=== PATIENT | female | born 1970 | race Caucasian/White ===

== ENCOUNTER 2018-02-23 06:10 | Inpatient (IN) | payer BC ==
[2018-02-01 11:41] VITALS: BMI 22.6
[2018-02-23] MEDS ORDERED: CEFAZOLIN 1 GM/D5W 1 GRAM/50 ML BAG IVPB ONE (06:22)
[2018-02-23] MEDS ORDERED: TRANEXAMIC ACID 1000 MG/10 ML VIAL IVPUSH ONE (06:45)
[2018-02-23] MEDS ORDERED: SUCCINYLCHOLINE CHLORIDE 200 MG/10 ML VIAL ONE (06:47)
[2018-02-23] MEDS ORDERED: PROPOFOL 20 ML ONE ×6 (06:47)
[2018-02-23] MEDS ORDERED: LIDOCAINE HCL/PF 2% SDV 5ML VIAL ONE (06:47)
[2018-02-23] MEDS ORDERED: MIDAZOLAM HCL 2 MG/2 ML SINGLE DOSE VIAL ONE ×2 (06:48)
[2018-02-23] MEDS ORDERED: EPINEPHrine/PF 1 MG/1 ML (1:1,000) AMPULE ONE (06:48)
[2018-02-23] MEDS ORDERED: GABAPENTIN 300 MG CAPSULE (FP) ONE (06:52)
[2018-02-23] MEDS ORDERED: CELECOXIB 200 MG CAPSULE ONE (06:52)
[2018-02-23] MEDS ORDERED: oxyCODONE HCL 10 MG SUSTAINED ACTING TABLET ONE (06:52)
[2018-02-23] MEDS ORDERED: DESFLURANE GAS 240 ML BOTTLE IH ONE (06:55)
[2018-02-23] MEDS ORDERED: DEXAMETHASONE SOD PHOSPHATE/PF 10 MG/ML SDV ONE (06:55)
[2018-02-23] MEDS ORDERED: ROPIVACAINE HCL 0.5% 30ML VIAL ONE (06:55)
[2018-02-23] MEDS: oxyCODONE HCL 10 MG SUSTAINED ACTING TABLET PO ONE ×2 (07:05→11:26)
[2018-02-23] MEDS: GABAPENTIN 300 MG CAPSULE (FP) PO ONE ×2 (07:05→11:26)
[2018-02-23] MEDS: CELECOXIB 200 MG CAPSULE PO ONE ×2 (07:05→11:25)
[2018-02-23] MEDS ORDERED: VANCOMYCIN 1,000 MG VIAL (RESTRICTED TO ID ONLY) ONE (07:12)
[2018-02-23] MEDS ORDERED: ceFAZolin SODIUM 1 GM VIAL ONE (07:58)
--- NOTE | 2018-02-23 07:58 | HP ---
Satellite [facility] - Chief Complaint Chief Complaint: right hip pain - Past Medical History Allergies/Adverse Reactions: Allergies Allergy/AdvReac Type Severity Reaction Status Date / Time Penicillins Allergy Severe SEIZURE AT Verified 02/01/18 11:29 16 MONTHS OLD ...LMP: 12/27/17 - Current Medications Current Medications: Home Medications Medication Instructions Recorded Amlodipine Besylate 10 mg PO HS 02/01/18 Cyanocobalamin (Vitamin B-12) 2,500 mcg PO DAILY 02/01/18 [Vitamin B12] Mirabegron [Myrbetriq] 25 mg PO HS 02/01/18 Multivitamin [Multiple Vitamins] 1 each PO DAILY 02/01/18 Olopatadine HCl [Patanol] 5 ml OU DAILY 02/01/18 Valacyclovir HCl [Valtrex] 500 mg PO HS 02/01/18 Vitamin B Complex Vit C No.4 150 mg PO DAILY 02/01/18 [Super B Complex] Azelastine HCl 137 mcg NS DAILY 02/23/18 Fluticasone Prop 0.05% Nasal 1 - 2 spray NS DAILY 02/23/18 [Flonase -] Satellite Physical Exam - Physical Examination Vital Signs: Vital Signs Period Temp Pulse Resp BP Sys/Bryan Pulse Ox Last 24 Hr 98.5 F 76 16 114/68 General Appearance: Well Nourished, Well Developed, Alert & Oriented x3 ENT: Clear Lung: Normal air movement Heart: Regular rate & rhythm Extremities: Other (right hip- + ttp, decr rom, nvi xrays show grade 4 hip djd) Neurological: Intact, Alert, Oriented Satellite Impression/Plan - Impression/Plan Impression: right hip djd Operative Procedure: right ryan thr Date to be Performed: 02/23/18
[2018-02-23] MEDS ORDERED: BUPIVACAINE HCL/PF 0.5% (5MG/ML) 10 ML VIAL ONE (08:13)
[2018-02-23] MEDS ORDERED: ePHEDrine SULFATE 50 MG/1 ML AMPULE ONE (08:58)
[2018-02-23] MEDS ORDERED: MAG HYDROX/AL HYDROX/SIMETH 30 ML UNIT-DOSE CUP PO PRN (09:37)
[2018-02-23] MEDS ORDERED: ONDANSETRON 4 MG/2 ML VIAL IVPUSH PRN ×2 (09:37→09:45)
[2018-02-23] MEDS ORDERED: MAGNESIUM HYDROX 2400MG/30ML ORAL SUSPENSION 30 ML CUP PO PRN (09:37)
--- NOTE | 2018-02-23 09:39 | OP ---
Operative Note - Note: Operative Date: 02/23/18 (dana) Pre-Operative Diagnosis: right hip djd Operation: right ryan thr Post-Operative Diagnosis: Same as Pre-op Surgeon: Evans Cassidy Social Media Developer: Ruben Eisenberg) Anesthesiologist/[employer]: Emre Bennett Anesthesia: Spinal, Local Specimens Removed: femoral head Estimated Blood Loss (mls): 100 Operative Report Dictated: Yes
[2018-02-23] MEDS ORDERED: LACTATED RINGERS SOLUTION 1,000 ML IV SCH ×2 (09:45)
[2018-02-23] MEDS ORDERED: PROMETHAZINE HCL 25 MG/1 ML VIAL IVPB PRN (09:45)
[2018-02-23] MEDS ORDERED: oxyCODONE HCL 5 MG TABLET PO PRN (09:45)
[2018-02-23] MEDS ORDERED: OLOPATADINE HCL OU SCH (10:00)
[2018-02-23] MEDS ORDERED: TRANEXAMIC ACID 1000 MG/10 ML VIAL IVPB ONE (10:16)
[2018-02-23] MEDS ORDERED: TRANEXAMIC ACID 1000 MG/10 ML VIAL ONE (10:42)
[2018-02-23] MEDS: ACETAMINOPHEN 325 MG TABLET (FP) PO SCH ×2 (10:55→17:38)
[2018-02-23] MEDS: FLUTICASONE PROP 0.05% 16 GM NASAL SPRAY NS SCH (11:26)
[2018-02-23] MEDS: PANTOPRAZOLE 40 MG TABLET (FP) PO SCH (11:27)
[2018-02-23] MEDS: SENNOSIDES/DOCUSATE COMBO (SENNA PLUS) TABLET (UD) PO SCH ×2 (11:27→22:13)
[2018-02-23] MEDS: MULTIVITAMINS (DAILY MVI) TABLET (FP) PO SCH (11:27)
[2018-02-23] MEDS: GABAPENTIN 300 MG CAPSULE (FP) PO SCH ×2 (11:27→22:13)
[2018-02-23] MEDS: PATIENT'S OWN MEDICATION (NON-FORMULARY) (Azelastine Hcl [Azelastine Hcl] 137 MCG) NS SCH (11:28)
[2018-02-23] MEDS: oxyCODONE HCL 5 MG TABLET PO PRN ×2 (13:16→22:29)
--- NOTE | 2018-02-23 13:19 | SPEC ---
DATE OF OPERATION: 02/23/2018 PREOPERATIVE DIAGNOSIS: Degenerative joint disease right hip. POSTOPERATIVE DIAGNOSIS: Degenerative joint disease right hip. PROCEDURE PERFORMED: Right total hip replacement with robotic-assisted navigation (MAKOplasty). SURGICAL ATTENDING: Evans Cassidy MD HEARING AID REPAIR TECHNICIAN: RICK Boyd and Petra Rehman MD ANESTHESIA: Regional and spinal. CLOSURE: A Trident II Press-Fit acetabular component, 46 mm; a standard MDM head; and a number 4 Accolade II Press-Fit femoral stem. Number 1 Vicryl for fascia, 0 and 2-0 subcutaneous, 3-0 subcuticular with skin glue for skin, 4-0 undyed Vicryl for pin sites. ESTIMATED BLOOD LOSS: Less than 100 mL. COMPLICATIONS: None. CONDITION: To the recovery room in stable condition. DESCRIPTION OF PROCEDURE: The patient was taken to the operating room on February 23, 2018. General and regional anesthesia was administered by the anesthesiologist. IV Kefzol and TXA were administered prophylactically prior to the case. The patient was placed in the lateral decubitus position will all prominences well-padded. The right hip area was prepped and draped in the usual sterile fashion. Using 3 small stab incisions over the iliac crest, 3 threaded pins were drilled in power fashion through the 2 tables of the crest. These pins were fastened and the navigation array for the Rogelio navigation system. Next, a 12 to 15-cm curved longitudinal incision over the posterolateral aspect of the greater trochanter was incised. Hemostasis was achieved with Bovie cautery. Sharp dissection was carried down to level of the fascia. The fascia was opened the entire length of the incision, spreading the fibers of the gluteus ruth in the direction of origin. A Charnley retractor was placed in this layer. Care was taken not to impale the sciatic nerve. The short external rotators were detached off the insertion of the greater trochanter and peeled off the capsule. A posterior capsulotomy was then performed. A check point was malleted into the greater trochanter and a point on the inferior pole of the patella was obtained as well. These 2 points were used to assess the preoperative offset and limb lengths of the hip. The hip was then dislocated. The femoral neck was then osteotomized down to the appropriate level as directed by the navigation device. Anterior and posterior retractors were placed, exposing the acetabulum. A circumferential labral excision was performed. A check point was malleted into the acetabulum as well. Multiple sites inside the acetabulum and around the rim were utilized to register the acetabulum with the navigation device. An excellent registration of less than 0.5 mm was obtained. The hip was then reamed with the appropriate reamer down to the appropriate depth, with the appropriate orientation and version as assessed on our preoperative plan for this patient. The reamer was removed and the acetabulum was inspected to have good bleeding surfaces throughout. The real acetabular cup was then malleted down into place, with the holes in the appropriate position, until an excellent fixation was obtained. No screws were necessary. The navigation device ensured appropriate orientation and version, with the depth as predetermined. The appropriate liner was then clipped into place. Attention was directed to the femur. The proximal femur was prepared by use a box chisel, a canal finder and serial broaches until the broach achieved excellent rigidity in the proximal femur with the appropriate version being applied. A calcar planer was used to smooth off the calcar flush with the trial components. A trial reduction with the appropriate head was done, and the hip was reduced. The hip was taken through a range of motion from full extension with external rotation to marked flexion, and was stable at 90 degrees of flexion. It was stable to marked abduction and internal rotation, with a positive hang test and negative telescoping. Limb lengths were ascertained visually as well as with the navigation device to be within the targeted range for this patient. The trial component was removed. The real component was then malleted into place. The head was cold welded to the trunnion, and the hip was reduced. Range of motion, stability and limb lengths were as described in the trial component. Then the hip was pulse antibiotic irrigated. Vancomycin powder was placed in the hip joint. The capsule was closed. The fascia was then closed as well using number 1 Vicryl interrupted suture, 0 and 2-0 subcutaneous, and 3-0 subcuticular with skin glue for the skin. 4-0 undyed Vicryl was used to close the pin sites after the pins were removed. All check points were also removed. Sterile Aquacel dressing was applied. The patient was awakened from anesthesia and transferred into the supine position. Bilateral SCDs and an abduction pillow were placed. X-rays revealed excellent position of the components. The patient was transferred to the recovery room in stable condition, with no complications. Estimated blood loss was less than 100 mL. Petra Rehman MD dictating for MD PETRA Alcantara M.D. [id number]
[2018-02-23] MEDS: CEFAZOLIN 1 GM/D5W 1 GRAM/50 ML BAG IVPB SCH (15:45)
[2018-02-23] MEDS ORDERED: PT OWN MED DRAWER 7, Y5N ONE ×2 (18:16→20:20)
[2018-02-23] MEDS: amLODIPine BESYLATE 10 MG TABLET (FP) PO SCH (22:14)
[2018-02-23] MEDS: oxyCODONE HCL 10 MG SUSTAINED ACTING TABLET PO SCH (22:14)
[2018-02-23] MEDS: PATIENT'S OWN MEDICATION (NON-FORMULARY) (Mirabegron [Myrbetriq] 25 MG) PO SCH (22:14)
[2018-02-24] MEDS: ACETAMINOPHEN 325 MG TABLET (FP) PO SCH ×4 (00:27→18:07)
[2018-02-24] MEDS: CEFAZOLIN 1 GM/D5W 1 GRAM/50 ML BAG IVPB SCH (00:28)
[2018-02-24] MEDS: oxyCODONE HCL 5 MG TABLET PO PRN ×3 (03:53→20:04)
[2018-02-24 08:28] LABS: HEMOGLOBIN 9.7 GM/dl (10.7-15.3); MCH 24.1 pg (25.7-33.7); MCHC 32.4 g/dl (32.0-36.0); MEAN CELL VOLUME 74.6 fl (80-96); MEAN PLT VOLUME 10.3 fl (7.5-11.1); PLATELET COUNT 185 K/MM3 (134-434); RBC 4.03 M/mm3 (3.60-5.2); RDW 14.5 % (11.6-15.6); WHITE BLOOD COUNT 13.7 K/mm3 (4.0-10.8)
[2018-02-24] MEDS: ASPIRIN 325 MG TABLET PO SCH (08:50)
--- NOTE | 2018-02-24 09:29 | PN ---
Progress Note (short form) - Note Progress Note: 47F POD1 s/p R THR under spinal anesthetic with peripheral nerve block for post operative pain relief. Pt states that pain is well controlled and reports no anesthetic complications. AVSS. Motor and sensory function intact in bilateral lower extremities. Continue current regimen.
--- NOTE | 2018-02-24 09:52 | PN ---
Progress Note (short form) - Note Progress Note: Ortho Pt seen and examined s/p right ryan thr pod #1 Selected Entries 02/24/18 06:00 Temperature 98.1 F Pulse Rate 79 Respiratory 18 Rate Blood Pressure 135/78 Laboratory Tests 02/24/18 07:30 WBC 13.7 H Hgb 9.7 L Hct 30.0 L Plt Count 185 dressing c/d/i, calf soft, nt nvi a/p PT hip precautions dvt ppx pain control d/c home tomorrow if stable
[2018-02-24] MEDS: PATIENT'S OWN MEDICATION (NON-FORMULARY) (Azelastine Hcl [Azelastine Hcl] 137 MCG) NS SCH (10:00)
[2018-02-24] MEDS ORDERED: PT OWN MED DRAWER 7, Y5N ONE ×3 (10:04→21:42)
[2018-02-24] MEDS: FLUTICASONE PROP 0.05% 16 GM NASAL SPRAY NS SCH (10:08)
[2018-02-24] MEDS: SENNOSIDES/DOCUSATE COMBO (SENNA PLUS) TABLET (UD) PO SCH ×2 (10:09→22:31)
[2018-02-24] MEDS: MULTIVITAMINS (DAILY MVI) TABLET (FP) PO SCH (10:09)
[2018-02-24] MEDS: GABAPENTIN 300 MG CAPSULE (FP) PO SCH ×2 (10:09→22:31)
[2018-02-24] MEDS: oxyCODONE HCL 10 MG SUSTAINED ACTING TABLET PO SCH ×2 (10:09→22:31)
[2018-02-24] MEDS: PANTOPRAZOLE 40 MG TABLET (FP) PO SCH (10:10)
[2018-02-24] MEDS ORDERED: OLOPATADINE HCL OU PRN (10:39)
[2018-02-24] MEDS: amLODIPine BESYLATE 10 MG TABLET (FP) PO SCH (22:31)
[2018-02-24] MEDS: PATIENT'S OWN MEDICATION (NON-FORMULARY) (Mirabegron [Myrbetriq] 25 MG) PO SCH (22:37)
[2018-02-25] MEDS: ACETAMINOPHEN 325 MG TABLET (FP) PO SCH ×3 (01:59→11:20)
[2018-02-25 06:45] VITALS: BP 105/55; PULSE 79; TEMP 99.5
[2018-02-25] MEDS: ASPIRIN 325 MG TABLET PO SCH (08:00)
--- NOTE | 2018-02-25 08:11 | DS ---
Physical Examination Vital Signs: Vital Signs Temperature 99.5 F 02/25/18 06:00 Pulse Rate 79 02/25/18 06:00 Respiratory Rate 18 02/25/18 06:00 Blood Pressure 105/55 L 02/25/18 06:00 O2 Sat by Pulse Oximetry (%) 95 02/25/18 06:00 Discharge Summary Reason For Visit: OSTEOARTHRITIS Procedures: Principal: s/p right thr Hospital Course: admitted for elective right ryan thr, uneventful post-op, stable for d/c Condition: Good - Instructions Diet, Activity, Other Instructions: Post-op Instructions-Total Hip Replacement Call the office for a follow-up appointment in 1 week - [phone] Aspirin 325mg daily for 6 weeks. Pain medication was sent into your pharmacy. Apply Graduated Compression Stockings (TEDs) to both lower extremities- remove daily for hygiene ONLY Apply Sequential Compression Device (SCDs) to both Lower extremities remove for PT and hygiene ONLY Apply cold packs to affected area for 15 minutes every 2 hours. Physical Therapist will come to your home for the first 5 days. You will be set up with outpatient PT at your first post-operative visit. Patient may ambulate as tolerated-encourage self care (at least every 2-3 hours while awake) with walker or cane Maintain Aquacel (waterproof) dressing to operative wound (will be removed by surgeon at first office visit) Shower with Aquacel dressing in place-if Aquacel integrity compromised, remove and apply dry sterile dressing and notify Orthopedist. DO NOT SHOWER unless Orthopedists approves without Aquacel dressing CONTACT THE OFFICE FOR ANY CHANGE IN YOUR CONDITION (for example-fever greater than 102 degrees, excessive bleeding from operative site, purulent drainage, severe swelling or pain) GO TO THE EMERGENCY ROOM IF THERE IS A MEDICAL EMERGENCY Hip Precautions: * Keep a rolled towel under affected heel while in bed or chair (to keep knee in extension) * Dependent upon approach: * Posterior - do not cross legs; do not sit on low chairs or toilets. * If you have any questions, please do not hesitate to call the office - [phone]. Referrals: Jose Rehman MD [Staff Physician] - Disposition: VNS/HOME HEALTH CARE - Home Medications Comprehensive Discharge Medication List: Ambulatory Orders Amlodipine Besylate 10 mg PO HS 02/01/18 Cyanocobalamin (Vitamin B-12) [Vitamin B12] 2,500 mcg PO DAILY 02/01/18 Mirabegron [Myrbetriq] 25 mg PO HS 02/01/18 Multivitamin [Multiple Vitamins] 1 each PO DAILY 02/01/18 Olopatadine HCl [Patanol] 5 ml OU DAILY 02/01/18 Valacyclovir HCl [Valtrex] 500 mg PO HS 02/01/18 Vitamin B Complex Vit C No.4 [Super B Complex] 150 mg PO DAILY 02/01/18 Aspirin [ASA -] 325 mg PO DAILY@0800 tablet 02/23/18 Azelastine HCl 137 mcg NS DAILY 02/23/18 Fluticasone Prop 0.05% Nasal [Flonase -] 1 - 2 spray NS DAILY 02/23/18 Oxycodone HCl/Acetaminophen [Percocet 5-325 mg Tablet -] 1 - 2 tab PO Q6H #50 tab MDD 8 02/23/18
--- NOTE | 2018-02-25 08:11 | PN ---
Progress Note (short form) - Note Progress Note: Ortho Pt seen and examined s/p right ryan thr pod #2 Selected Entries 02/25/18 06:00 Temperature 99.5 F Pulse Rate 79 Respiratory 18 Rate Blood Pressure 105/55 L Laboratory Tests 02/25/18 07:45 WBC Pending Hgb Pending Hct Pending Plt Count Pending dressing c/d/i, calf soft, nt nvi a/p PT hip precautions dvt ppx pain control d/c home today f/u in 1 week
[2018-02-25 08:14] LABS: HEMATOCRIT 27.2 % (32.4-45.2); HEMOGLOBIN 8.8 GM/dl (10.7-15.3); MCHC 32.2 g/dl (32.0-36.0); MEAN CELL VOLUME 74.3 fl (80-96); MEAN PLT VOLUME 10.1 fl (7.5-11.1); PLATELET COUNT 168 K/MM3 (134-434); RBC 3.66 M/mm3 (3.60-5.2); RDW 14.3 % (11.6-15.6); WHITE BLOOD COUNT 11.6 K/mm3 (4.0-10.8)
[2018-02-25] MEDS ORDERED: PT OWN MED DRAWER 7, Y5N ONE ×2 (09:11→11:03)
[2018-02-25] MEDS: MULTIVITAMINS (DAILY MVI) TABLET (FP) PO SCH (09:24)
[2018-02-25] MEDS: GABAPENTIN 300 MG CAPSULE (FP) PO SCH (09:24)
[2018-02-25] MEDS: oxyCODONE HCL 10 MG SUSTAINED ACTING TABLET PO SCH (09:25)
[2018-02-25] MEDS: PANTOPRAZOLE 40 MG TABLET (FP) PO SCH (09:25)
[2018-02-25] MEDS: SENNOSIDES/DOCUSATE COMBO (SENNA PLUS) TABLET (UD) PO SCH (09:25)
[2018-02-25] MEDS: oxyCODONE HCL 5 MG TABLET PO PRN (09:25)
[2018-02-25] MEDS: PATIENT'S OWN MEDICATION (NON-FORMULARY) (Azelastine Hcl [Azelastine Hcl] 137 MCG) NS SCH (09:26)
[2018-02-25] MEDS: FLUTICASONE PROP 0.05% 16 GM NASAL SPRAY NS SCH (09:26)
--- NOTE | 2018-02-26 15:56 | PATH ---
Surgical Pathology Report Patient Name: SANCHEZ JENKINS Med. Rec. #: [id number] /Age/Gender: 1970 (Age: 47) / F Account: [id number] Location: [facility] MED-SURG Taken: 02/23/2018 Received: 02/23/2018 Reported: 02/26/2018 Physicians: Evans Cassidy M.D. Specimen(s) Received RIGHT FEMORAL HEAD Clinical History Right hip osteoarthritis Final Diagnosis BONE, FEMORAL HEAD, RIGHT, TOTAL HIP REPLACEMENT MAKOPASTY: BONE WITH DEGENERATIVE JOINT DISEASE. Electronically Signed Aster Dacosta M.D. Gross Description Received in formalin, labeled "right femoral head," is a 4.0 x 4.0 x 3.4 cm. femoral head with a 1.0 cm in length portion of femoral neck attached. The margin of resection is smooth. The there is a 3.7 cm in greatest dimension area of eburnation present. The remaining articular surface is grijalva-yellow and diffusely nodular and granular. The underlying trabecular bone is yellow and hard. A development representative section is submitted in one cassette, following decalcification. /02/25/201802/25/2018
== END 2018-02-25 11:43 | disposition home health service (06) | DRG 470 ==
LOC: FM/S 06:10
PROVIDERS: ADMIT Orthopaedic Surgery; ATTEND Orthopaedic Surgery
PROC: 8E0W0CZ Robotic Assisted Procedure of Trunk Region, Open Approach (ICD-10-PCS; 2018-02-23)
PROC: 0SR90JZ Replacement of Right Hip Joint with Synthetic Substitute, Open Approach (ICD-10-PCS; principal; 2018-02-23 08:41)
DX: M16.11 Unilateral primary osteoarthritis, right hip (principal)
CPT/HCPCS: 36415; 73502-TC-RT; 84703; 85027; 88305-TC; 88311-TC; 94760; 97116-GP; 97162-GP

== ENCOUNTER 2019-03-21 07:20 | Day surgery (SDC) | payer BC ==
[2019-03-17 16:40] VITALS: BMI 23.1
[2019-03-21] MEDS ORDERED: PROPOFOL 20 ML ONE ×3 (08:29)
[2019-03-21] MEDS ORDERED: LIDOCAINE HCL/PF 2% SDV 5ML VIAL ONE (08:29)
[2019-03-21 09:09] VITALS: BP 118/70; TEMP 97.4
[2019-03-21 09:22] VITALS: PULSE 68
== END 2019-03-21 09:22 | disposition home or self-care (01) ==
LOC: FASU-ENDO 07:20
PROVIDERS: ATTEND Internal Medicine Gastroenterology
PROC: 0DJD8ZZ Inspection of Lower Intestinal Tract, Via Natural or Artificial Opening Endoscopic (ICD-10-PCS; principal; 2019-03-21 08:37)
DX: Z12.11 Encounter for screening for malignant neoplasm of colon (principal); Z83.71 Family history of colonic polyps
CPT/HCPCS: 84703

== ENCOUNTER 2019-12-05 08:14 | Day surgery (SDC) | payer BC ==
[2019-12-01 17:46] VITALS: BMI 22.3
[2019-12-05] MEDS ORDERED: MIDAZOLAM HCL 2 MG/2 ML SINGLE DOSE VIAL ONE (11:09)
[2019-12-05] MEDS ORDERED: PROPOFOL 20 ML ONE (11:09)
--- NOTE | 2019-12-05 12:31 | OP ---
Operative Note - Note: Operative Date: 12/05/19 Pre-Operative Diagnosis: Left renal stone Operation: Left ESWL Findings: 4 mm lower pole left renal stone Post-Operative Diagnosis: Same as Pre-op Surgeon: Nicola Spivey Anesthesia: Regional Estimated Blood Loss (mls): 0 Operative Report Dictated: Yes
[2019-12-05 12:58] VITALS: BP 110/78; PULSE 60; TEMP 97.6
[2019-12-05] MEDS ORDERED: ACETAMINOPHEN 325 MG TABLET (FP) ONE (13:00)
--- NOTE | 2019-12-05 23:23 | OP ---
DATE OF OPERATION: 12/05/2019 PREOPERATIVE DIAGNOSIS: Left renal stone. POSTOPERATIVE DIAGNOSIS: Left renal stone. PROCEDURE: Extracorporeal shockwave lithotripsy. ATTENDING: Lei Spivey M.D. ANESTHESIA: Fractional. DESCRIPTION OF PROCEDURE: Patient was placed in a supine position on the operating room table. Ultrasonography and fluoroscopy were performed. A 4-mm left lower pole renal stone was identified. At this point, anesthesia and preoperative antibiotics were administered. Shockwave lithotripsy was then started. 2500 impulses, 17 joules of power were administered to the 4-mm left lower pole stone with excellent fragmentation noted under real time ultrasonography and fluoroscopy. No complications were noted. Patient tolerated procedure very well. LEI DEGROOT M.D. /[id number]
== END 2019-12-05 13:34 | disposition home or self-care (01) ==
LOC: JASU-SURG 08:14
PROVIDERS: ATTEND Urology
PROC: 0TF4XZZ Fragmentation in Left Kidney Pelvis, External Approach (ICD-10-PCS; principal; 2019-12-05 10:30)
DX: N20.0 Calculus of kidney (principal)